=== PATIENT | female | born 1960 | race Caucasian/White ===

== ENCOUNTER → 2023-07-25 10:28 | Outpatient (REF) | payer OTHER, SELFPAY | LOC: RAD 10:28 | PROVIDERS: ATTENDING PHYSICIAN Family Medicine | DX: K75.81 Nonalcoholic steatohepatitis (NASH) (principal); R16.0 Hepatomegaly, not elsewhere classified; M47.816 Spondylosis without myelopathy or radiculopathy, lumbar region | CPT/HCPCS: 72110; 76700; 93975 ==

== ENCOUNTER → 2023-10-09 11:52 | Outpatient (REF) | payer OTHER, SELFPAY | LOC: DHCBC/DCA 11:52 | PROVIDERS: ATTENDING PHYSICIAN Nuclear Medicine Nuclear Cardiology; FAMILY PHYSICIAN Family Medicine | DX: I44.2 Atrioventricular block, complete (principal); R06.02 Shortness of breath | CPT/HCPCS: 78452; 93017; A9500; J2785 ==

== ENCOUNTER → 2023-10-13 08:12 | Outpatient (REF) | payer OTHER, SELFPAY | LOC: DHCBS MAIN 08:12 | PROVIDERS: ATTENDING PHYSICIAN Nuclear Medicine Nuclear Cardiology; FAMILY PHYSICIAN Family Medicine | DX: I44.2 Atrioventricular block, complete (principal); R06.02 Shortness of breath | CPT/HCPCS: 71046; 93306 ==

== ENCOUNTER → 2023-10-13 09:09 | Outpatient (REF) | payer OTHER, SELFPAY | LOC: REG 09:09 | PROVIDERS: ATTENDING PHYSICIAN Nuclear Medicine Nuclear Cardiology; FAMILY PHYSICIAN Family Medicine | DX: I44.2 Atrioventricular block, complete (principal); R06.02 Shortness of breath | CPT/HCPCS: 71046 ==

== ENCOUNTER → 2024-08-09 11:52 | Outpatient (REF) | payer OTHER, SELFPAY | LOC: WDC 11:52 | PROVIDERS: ATTENDING PHYSICIAN Family Medicine | DX: Z12.31 Encounter for screening mammogram for malignant neoplasm of breast (principal) | CPT/HCPCS: 77063; 77067 ==

== ENCOUNTER → 2024-09-05 14:43 | Outpatient (REF) | payer OTHER, SELFPAY ==
--- NOTE | 2024-09-05 16:05 | CARDSERVLU ---
Echocardiogram with Lumason completed after protocol screening completed. Allergies verified.
Patent IV site: _Right hand metacarpal 22 G PC____
IV site flushed with 0.9% NaCl pre and post administration.
Diluted bolus method utilized to enhance visualization of ventricular fox.
Total volume given: __3__ mL
Patient tolerated all procedures well without complications.
Heplock D/C ed at 1605, site clear, no redness. Pressure held, no bleeding, 2x2 applied and taped. Pt offers no complaints.
== END ==
LOC: RCS 14:43
PROVIDERS: ATTENDING PHYSICIAN Family Medicine; OTHER PHYSICIAN Nuclear Medicine Nuclear Cardiology
DX: I50.9 Heart failure, unspecified (principal)
CPT/HCPCS: 93306; Q9950

== ENCOUNTER → 2024-10-01 11:36 | Outpatient (REF) | payer OTHER, SELFPAY | LOC: RAD 11:36 | PROVIDERS: ATTENDING PHYSICIAN Internal Medicine Critical Care Medicine; FAMILY PHYSICIAN Family Medicine | DX: R06.02 Shortness of breath (principal); J98.4 Other disorders of lung; J98.6 Disorders of diaphragm | CPT/HCPCS: 71046; 76000 ==